=== PATIENT | female | born 1940 | race Caucasian/White ===

== ENCOUNTER → 2016-04-12 | Outpatient (CLI) | payer OTHER ==
--- NOTE | 2016-04-12 13:04 | KCIC ---
PROCEDURE MRI thoracic spine without contrast. HISTORY Low back pain, spinal stimulator trial, chronic spine pain and bilateral feet pain TECHNIQUE Multiplanar, multi sequential non contrast MR imaging was performed of the thoracic spine. COMPARISON None FINDINGS Thoracic vertebral body stature is mostly preserved other than Schmorl's nodes at T7-8, small foci such as inferiorly of T9 and T10 and superiorly of T12. Thoracic cord caliber is within normal limits. Accurate evaluation for cord signal abnormality is somewhat limited due to motion artifact. There is no expansile signal change, difficult to exclude mild signal abnormality of the cord such as T7-T9. There is no significant focal marrow edema. There is multilevel mild to moderate degenerative disc disease centered about mid to inferior thoracic levels. Some heterogeneous signal posterior to the thoracic cord is most commonly due to CSF pulsation artifact. Levels with abnormalities include: T7-T8: There is shallow posterior protrusion without significant spinal stenosis. T8-T9: There is 0.7 centimeter AP x 0.6 centimeter transverse by 0.8 centimeter focus of apparently extradural signal abnormality in the posterior right lateral recess, indentation upon the posterior right thecal sac and focal effacement of subarachnoid space in the posterior right lateral recess. There is moderate right lateral recess stenosis and [id number] narrowing of the central canal. T9-T10: There is a very shallow posterior central protrusion without significant spinal stenosis. T11-12: There is buckling of the ligamentum flavum without significant spinal stenosis. Facet degenerative change contributes to mild posterior narrowing of the right neural foramen. IMPRESSION 1. There is focus of extradural signal abnormality in the posterior right lateral recess at the T8-9 level, possibly mass such as meningioma for which post-contrast imaging would be beneficial. There is resultant moderate right lateral recess stenosis at this level. There are other shallow posterior protrusions as stated at T7-8 and T9-T10 without significant spinal stenosis. 2. There is mild to moderate degenerative disc disease centered about mid to inferior thoracic levels. Electronically signed by: Ki Ricks MD (Apr 12, 2016 13:03:18)
--- NOTE | 2016-04-12 13:10 | KCIC ---
PROCEDURE MRI lumbar spine without contrast. HISTORY Chronic low back pain, chronic pain in the spine and bilateral feet TECHNIQUE Sagittal axial T1 and T2 and sagittal STIR images were acquired of the lumbar spine. Contrast: None COMPARISON None FINDINGS Lumbar vertebral body stature is adequate. AP alignment is maintained. Conus terminates at the inferior aspect of L1. There is moderate to severe degenerative disease greater on the right at L4-5, to a lesser degree at L5-S1 and minimally at more superior levels. There are posterior annular tears at L2-3 and L3-4. T11-12: There is buckling of the ligamentum flavum bilaterally with mild indentation upon the posterior thecal sac, no significant spinal stenosis. T12-L1: Spinal canal and neural foramina are adequate. L1-2: There is shallow posterior protrusion in the paracentral regions. Spinal canal is overall adequate. Neural foramina are adequate. L2-3: There is negligible posterior bulge. Spinal canal is adequate. There is mild facet hypertrophic change. Neural foramina are adequate. L3-4: There is shallow bulge/protrusion with mild indentation upon the ventral thecal sac greater in the right lateral recess. Spinal canal and neural foramina are adequate. L4-5: There is shallow posterior bulge/protrusion. Spinal canal is overall adequate. There is mild right facet hypertrophic change. Neural foramina are adequate. L5-S1: There is minimal disc osteophyte complex and bulge. Spinal canal is adequate. There is mild narrowing of the left neural foramen, right neural foramen adequate. IMPRESSION There is multilevel degenerative disc disease greatest at L4-5 and to a lesser degree at L5-S1. There is no significant lumbar spinal stenosis or neural foramina compromise. Electronically signed by: Ki Ricks MD (Apr 12, 2016 13:08:45)
== END | disposition home or self-care (01) ==
LOC: KCIC MRI 10:53
PROVIDERS: ATTEND Physical Medicine & Rehabilitation
DX: M51.34 Other intervertebral disc degeneration, thoracic region (principal); G89.29 Other chronic pain
CPT/HCPCS: 72146; 72148

== ENCOUNTER → 2016-05-21 | Outpatient (CLI) | payer OTHER ==
[~2016-05-21] MED LIST: ASPI-482 PO; ESTR0.5T PO; GADOBUTROL 10 MMOL/10 ML VIAL IV ONE; LEVO25TA4 PO; METO25TA4 PO; POTA10TA17 PO
--- NOTE | 2016-05-21 13:11 | KCIC ---
PROCEDURE MRI thoracic spine with contrast. HISTORY Mass TECHNIQUE Sagittal T2 as well as pre and postcontrast sagittal axial T1 weighted images were acquired of the thoracic spine with attention to abnormality as seen on April 12, 2016 noncontrast exam. Contrast: 8 cc Gadavist COMPARISON Noncontrast exam April 12, 2016 FINDINGS There is again focus of extradural signal abnormality in the posterior right lateral recess at the T8-9 level. This in greatest dimension is estimated at approximately 0.6 cm transverse by 0.7 cm AP x 0.8 cm cc. There are some small foci of internal enhancement within the lesion although does not convincingly enhance of the right aspect of the lesion. There is again mild indentation upon the posterior right aspect of the thecal sac, minimal narrowing of the right lateral recess. There is no nodular enhancement of the thoracic cord or within the intervertebral disc spaces. IMPRESSION There is again small focus of extradural signal abnormality in the posterior right lateral recess at the T8-T9 level. While there is some mild internal enhancement in the left aspect of the lesion, this does not convincingly enhance more laterally. Enhancement pattern would be atypical for a meningioma although still considered a possibility based on location. Enhancement pattern and signal characteristics would also be atypical for nerve sheath tumor. Sequela of more focal granulation tissue would be a consideration given mild enhancement. Electronically signed by: Ki Ricks MD (May 21, 2016 13:09:37)
== END | disposition home or self-care (01) ==
LOC: KCIC MRI 09:45
PROVIDERS: ATTEND Internal Medicine
DX: R22.2 Localized swelling, mass and lump, trunk (principal)
CPT/HCPCS: 72147; 82565; A9585